=== PATIENT | male | born 1950 | race Caucasian/White ===

== ENCOUNTER 2018-09-12 15:48 | Emergency (ER) | payer MEDICARE, MEDICAID ==
[~2018-09-12] VITALS: Ht 172.7 cm; Wt 87.0 kg
[~2018-09-12 15:48] MED LIST: NAPR220C15 PO
[2018-09-12] MEDS ORDERED: IBUPROFEN 800MG TABLET PO ONE (20:15)
[2018-09-12 22:01] VITALS: BP 129/73
== END 2018-09-12 22:05 | disposition home or self-care (01) ==
LOC: ER 15:48
DX: S29.012A Strain of muscle and tendon of back wall of thorax, initial encounter (principal); S40.011A Contusion of right shoulder, initial encounter; J44.9 Chronic obstructive pulmonary disease, unspecified; N40.0 Benign prostatic hyperplasia without lower urinary tract symptoms; V43.52XA Car driver injured in collision with other type car in traffic accident, initial encounter; Y93.89 Activity, other specified; Y92.410 Unspecified street and highway as the place of occurrence of the external cause
CPT/HCPCS: 71045; 73030; 99283